=== PATIENT | male | born 1995 | race Caucasian/White ===

== ENCOUNTER 2016-07-23 14:00 | Emergency (ER) | payer OTHER ==
[~2016-07-23] VITALS: Wt 49.5 kg
[~2016-07-23 14:00] MED LIST: IBUP-1542 PO
[2016-07-23] MEDS ORDERED: ONDANSETRON 4 MG INJ IV STA ×2 (14:36→17:17)
[2016-07-23] MEDS ORDERED: morphine 4 MG/ML VIAL IV STA (14:36)
[2016-07-23] MEDS ORDERED: SOD CHLORIDE 0.9% 1,000 ML IV STA (14:36)
[2016-07-23 14:58] LABS: BASOPHILS % 0.5 % (0.0-2.0); EOSINOPHILS # 0.1 10^3/ul (0.0-0.5); EOSINOPHILS % 1.1 % (0.0-7.0); HEMATOCRIT 42.9 % (42.0-52.0); HEMOGLOBIN 14.9 g/dl (14.0-18.0); LYMPHOCYTES # 1.9 10^3/ul (0.8-2.9); LYMPHOCYTES % 27.9 % (18.0-55.0); MEAN CORPUSCULAR HEMOGLOBIN 28.9 pg (29.0-33.0); MEAN CORPUSCULAR HGB CONC 34.8 g/dl (32.0-37.0); MEAN CORPUSCULAR VOLUME 82.9 fl (72.0-104.0); MONOCYTE # 0.5 10^3/ul (0.3-0.9); MONOCYTES % 7.5 % (0.0-13.0); NEUTROPHIL # 4.2 10^3/ul (1.6-7.5); PLATELET COUNT 166 10^3/UL (140-440); RED BLOOD COUNT 5.17 10^6/ul (4.70-6.10); RED CELL DISTRIBUTION WIDTH 13.5 % (11.5-14.5); UNCORRECTED WBC 6.7 10^3/ul (4.8-10.8); WHITE BLOOD COUNT 6.7 10^3/ul (4.8-10.8)
[2016-07-23 15:00] LABS: CONDITION 1
[2016-07-23 15:05] LABS: ALBUMIN 5.1 g/dl (3.3-4.9)
[2016-07-23 15:06] LABS: POTASSIUM 3.9 mmol/L (3.5-5.1)
[2016-07-23 15:08] LABS: ALBUMIN/GLOBULIN RATIO 1.5; BILIRUBIN,INDIRECT 0.8 mg/dl (0-1.1); BILIRUBIN,TOTAL 0.8 mg/dl (0.2-1.3); CALCIUM 9.9 mg/dl (8.4-10.2); CREATININE 0.84 mg/dl (0.61-1.24); TOTAL PROTEIN 8.5 g/dl (6.1-8.1)
[2016-07-23 15:30] VITALS: BP 108/56
[2016-07-23] MEDS ORDERED: SOD CHLORIDE 0.9% 100 ML ONE (16:49)
[2016-07-23] MEDS ORDERED: IOHEXOL 300MG/ML 150 ML BTL ONE (16:49)
[2016-07-23 17:17] LABS: ADD UMIC NO; URINE BILIRUBIN (Dip) NEGATIVE (NEGATIVE); URINE BLOOD (Dip) NEGATIVE (NEGATIVE); URINE COLOR LT. YELLOW (YELLOW); URINE GLUCOSE (Dip) NEGATIVE (NEGATIVE); URINE KETONES (Dip) 40 (NEGATIVE); URINE LEUKOCYTE ESTERASE (Dip) NEGATIVE (NEGATIVE); URINE NITRITE (Dip) NEGATIVE (NEGATIVE); URINE TOTAL PROTEIN (Dip) NEGATIVE (NEGATIVE); URINE UROBILINOGEN (Dip) 0.2 E.U./dL (0.1-1.0)
--- NOTE | 2016-07-23 17:36 | RADRPT ---
PROCEDURE: CT abdomen and pelvis with intravenous contrast. CLINICAL INDICATION: Abdominal Pain TECHNIQUE: Following intravenous contrast, spiral CT of the abdomen pelvis was performed and is re constructed at 2.5 mm contiguous axial intervals from the dome of the diaphragm to the inferior pubi c rami. Computer reformatted coronal and sagittal images are included. CT D I 3.7 millicurie Dose 205 millicurie per centimeter COMPARISON: None. FINDINGS: Lung bases are clear of any infiltrate or mass. There is no effusion. The liver is of normal size, contour and attenuation with no mass or intrahepatic ductal dilatation. No gallstones are present. No splenic, adrenal or pancreatic abnormalities present. Kidneys excrete contrast symmetrically. No hydronephrosis, calculus or masses present. Ureters are of normal course and caliber with no stone. No bladder mass or stone is present. Prostate and seminal vesicles are normal. No bowel mass or obstruction is seen. There is a single moderately dilated loop of small bowel in th e left anterior mid abdomen. This likely represents focal ileus. There is no phlegmon, ascites or p neumoperitoneum. No aneurysm is detected. There is no adenopathy. The osseous structures are intact. IMPRESSION: No evidence of urolithiasis, obstructive uropathy, diverticulitis or appendicitis. Single moderately distended air filled small bowel loops left abdomen compatible with focal ileus. .Keaton Ortiz MD, MD Date Time Electronically viewed and signed by .Keaton Ortiz MD, on 07/23/2016 17:35 .A/
[2016-07-23] MEDS ORDERED: ONDA8TAB14 PO (17:48)
[2016-07-23] MEDS ORDERED: IBUP-1542 PO (17:48)
--- NOTE | 2016-07-23 17:51 | ERD ---
ER Documentation Chief Complaint Date/Time DATE: 07/23/16 TIME: 17:49 Chief Complaint LOWER ABDOMINAL PAIN FOR THE PAST 4 DAYS. GETTING WORSE WITH N/V HPI This 10-year-old male presents with lower abdominal pain which is been intermittent but worsening over the last 4 days. He has had some vomiting over the last day. He denies fevers. Describes the pain as being in the lower abdomen left greater than right. His last bowel movement was 2 days ago. Although he usually has a bowel movement once or twice a week. The vomiting is nonbilious nonbloody. ROS All systems reviewed and are negative except as per history of present illness. Medications Home Meds Active Scripts Ondansetron (Ondansetron Odt) 8 Mg Tab.rapdis, 8 MG PO Q6H Y for NAUSEA AND/OR VOMITING, #8 TAB Prov:SARAI MAJANO MD 07/23/16 Ibuprofen* (Motrin*) 600 Mg Tab, 600 MG PO Q6, #15 TAB Prov:SARAI MAJANO MD 07/23/16 Ibuprofen* (Ibuprofen*) 600 Mg Tablet, 600 MG PO Q6 for PAIN, #30 TAB Prov:JONH RODRIGUEZ 12/30/15 Ibuprofen* (Motrin*) 600 Mg Tab, 600 MG PO Q6, #20 TAB Prov:ANDREW JOYA PA-C 10/21/15 Allergies Allergies: Coded Allergies: No Known Drug Allergies (Verified Allergy, Unknown, 10/21/15) PMhx/Soc History of Surgery: No Anesthesia Reaction: No Hx Neurological Disorder: No Hx Respiratory Disorders: No Hx Cardiac Disorders: No Hx Psychiatric Problems: No Hx Miscellaneous Medical Probl: Yes (previous injury of same ankle) Hx Alcohol Use: No Hx Substance Use: No Hx Tobacco Use: No Physical Exam Vitals Vital Signs Date Time Temp Pulse Resp B/P Pulse Ox O2 Delivery O2 Flow Rate FiO2 07/23/16 15:30 64 18 108/56 100 Room Air 07/23/16 14:03 97.5 149 26 137/98 99 Physical Exam Const: [] Patient appears in significant discomfort Head: Atraumatic Eyes: Normal Conjunctiva ENT: Normal External Ears, Nose and Mouth. Neck: Full range of motion..~ No meningismus. Resp: Clear to auscultation bilaterally Cardio: Regular rate and rhythm, no murmurs Abd: Soft generalized tenderness in lower abdomen left greater than right. No masses or definite rebound. non distended. Normal bowel sounds Skin: No petechiae or rashes Back: No midline or flank tenderness Ext: No cyanosis, or edema Neur: Awake and alert Psych: Normal Mood and Affect Result Diagram: 07/23/16 1448 07/23/16 1448 Results 24 hrs Laboratory Tests Test 07/23/16 14:48 07/23/16 14:52 07/23/16 16:16 Alanine Aminotransferase (ALT/SGPT) 25IU/L Albumin 5.1g/dl Albumin/Globulin Ratio 1.50 Alkaline Phosphatase 111IU/L Anion Gap 23 Aspartate Amino Transf (AST/SGOT) 19IU/L Basophils # 0.010^3/ul Basophils % 0.5% Blood Morphology Comment Blood Urea Nitrogen 14mg/dl Calcium Level 9.9mg/dl Carbon Dioxide Level 21mmol/L Chloride Level 102mmol/L Creatinine 0.84mg/dl Direct Bilirubin 0.00mg/dl Eosinophils # 0.110^3/ul Eosinophils % 1.1% Globulin 3.40g/dl Glucose Level 97mg/dl Hematocrit 42.9% Hemoglobin 14.9g/dl Indirect Bilirubin 0.8mg/dl Lipase 101U/L Lymphocytes # 1.910^3/ul Lymphocytes % 27.9% Mean Corpuscular Hemoglobin 28.9pg Mean Corpuscular Hemoglobin Concent 34.8g/dl Mean Corpuscular Volume 82.9fl Mean Platelet Volume 9.0fl Monocytes # 0.510^3/ul Monocytes % 7.5% Neutrophils # 4.210^3/ul Neutrophils % 63.0% Nucleated Red Blood Cells # 0.010^3/ul Nucleated Red Blood Cells % 0.0/100WBC Platelet Count 76137^3/UL Potassium Level 3.9mmol/L Red Blood Count 5.1710^6/ul Red Cell Distribution Width 13.5% Sodium Level 142mmol/L Total Bilirubin 0.8mg/dl Total Protein 8.5g/dl White Blood Count 6.710^3/ul Bedside Glucose 86mg/dL Urine Bilirubin NEGATIVE Urine Clarity CLEAR Urine Color LT. YELLOW Urine Glucose NEGATIVE% Urine Hemoglobin NEGATIVE Urine Ketones 40 Urine Leukocyte Esterase NEGATIVE Urine Nitrite NEGATIVE Urine Specific [place] <=1.005 Urine Total Protein NEGATIVE Urine Urobilinogen 0.2 E.U./dL Urine pH 6.0 Current Medications Medications (Trade) Dose Ordered Sig/Chloe Route PRN Reason Start Time Stop Time Status Last Admin Dose Admin Sodium Chloride (NS) 1,000 ml @ 1,000 mls/hr Q1H STAT IV 07/23/16 14:36 07/23/16 15:35 DC 07/23/16 14:44 Morphine Sulfate (morphine) 4 mg ONCE STAT IV 07/23/16 14:36 07/23/16 14:37 DC 07/23/16 14:44 Ondansetron HCl (Zofran Inj) 4 mg ONCE STAT IV 07/23/16 14:36 07/23/16 14:37 DC 07/23/16 14:43 IV Flush 10 ml 10 ml STK-MED ONCE .ROUTE 07/23/16 16:49 07/23/16 16:50 DC 07/23/16 17:04 Sodium Chloride (NS) 100 ml @ ud STK-MED ONCE .ROUTE 07/23/16 16:49 07/23/16 16:50 DC 07/23/16 17:04 Iohexol (Omnipaque 300mg/ ml) 150 ml STK-MED ONCE .ROUTE 07/23/16 16:49 07/23/16 16:50 DC 07/23/16 17:04 Ondansetron HCl (Zofran Inj) 4 mg ONCE STAT IV 07/23/16 17:17 07/23/16 17:18 DC 07/23/16 17:39 Procedures/MDM The uncertain cause of pain and IV was obtained patient was given 1 L normal saline IV, morphine 4 mg IV Zofran 4 mG IV. Urine is negative for infection, blood, glucose. CT abdomen pelvis with IV contrast shows a small focal ileus in the left lower quadrant but otherwise no additional acute findings. Patient felt much better after observation treatment with no further episodes of vomiting. Patient had some mild nausea after CT scan was given additional Zofran dose. Patient appears to have lower abdominal pain of uncertain etiology with a small focal ileus. Patient is not showing any signs of obstruction or active vomiting. We discharged home with a prescription of ibuprofen and Zofran and instructions for bland diet and instructions to return for recurrent vomiting despite treatment, fevers, worsening pain, new worsening symptoms. The patient was stable with no new complaints during the ER course. Clinically, there is no current evidence to suggest meningitis, sepsis, acute abdomen, pneumonia, acute coronary syndrome, pulmonary embolism, or any other emergent condition appearing to require further evaluation or hospitalization. The patient should certainly return for any new or worsening symptoms per the aftercare instructions. They should otherwise follow-up with her primary care doctor for reevaluation this week. Departure Diagnosis: Primary Impression: Abdominal pain Abdominal location: left lower quadrant Qualified Code: R10.32 - Left lower quadrant pain Condition: Stable Patient Instructions: Abdominal Pain Additional Instructions: There is a small dilated part of intestine likely causing cramps or gas type pain. Recommend bland diet, fluids and recheck for vomiting, worsening pain, blood, fevers, new or worsening symptoms. SARAI MAJANO MD Jul 23, 2016 17:51
[2016-07-23] MEDS ORDERED: KETOROLAC 30 MG INJ IV STA (17:52)
== END 2016-07-23 18:08 | disposition home or self-care (01) ==
LOC: FTE 14:00
DX: R10.32 Left lower quadrant pain (principal); R11.2 Nausea with vomiting, unspecified
CPT/HCPCS: 74177; 80053; 81003; 82962; 83690; 85025; J1885; J2270; J2405; J7030; Q9967; Z7610; 36415; 96374; 96375; 96376